=== PATIENT | male | born 1940 | race Caucasian/White ===

== ENCOUNTER 2016-10-12 12:08 | Day surgery (SDC) | payer MEDICARE, BC ==
--- NOTE | ~2016-10-12 | EGD ---
EGD REPORT [facility] [address] [address] NAME: NARESH SNELL : 40 [place]US [place] [facility] [place] [id number] AGE: 76 ADM/REG DATE : 10/12/16 MR#: [id number] REPORT SERV DATE: 10/12/16 DICTATED BY: LILLIANA NOWAK DATE: 10/12/16 REPORT STATUS : Draft TRANSCRIBED BY: [facility] DATE: 10/12/16 Endoscopy Center Patient Name: Naresh Snell Date of : 1940 Attending MD: LILLIANA NOWAK MD Procedure Date No Time: 10/12/2016 Procedure: Colonoscopy Indications: Follow-up for history of adenomatous polyps in the colon, Last colonoscopy: March 2006 Referring MD: KALLIE HERRON Medicines: Propofol per Anesthesia Complications: No immediate complications. Estimated blood loss: None. Procedure: Pre-Anesthesia Assessment: - After reviewing the risks and benefits, the patient was deemed in satisfactory condition to undergo the procedure. - Prior to the procedure, a History and Physical was performed, and patient medications and allergies were reviewed. The patient's tolerance of previous anesthesia was also reviewed. The risks and benefits of the procedure and the sedation options and risks were discussed with the patient. All questions were answered, and informed consent was obtained. Prior Anticoagulants: The patient has taken no previous anticoagulant or antiplatelet agents. ASA Grade Assessment: III - A patient with severe systemic disease. After reviewing the risks and benefits, the patient was deemed in satisfactory condition to undergo the procedure. After I obtained informed consent, the scope was passed under direct vision. Throughout the procedure, the patient's blood pressure, pulse, and oxygen saturations were monitored continuously. The CF [id number] was introduced through the anus and advanced to the cecum, identified by appendiceal orifice and ileocecal valve. The colonoscopy was performed with moderate difficulty due to significant looping and a tortuous colon. Successful completion of the procedure was aided by applying abdominal pressure. The ileocecal valve and appendiceal orifice were photographed. The patient tolerated the procedure well. The quality of the bowel preparation was adequate to identify polyps 6 mm and larger in size. The bowel preparation used was polyethylene glycol (PEG). Scope withdrawal time was greater than 6 minutes. EGD REPORT [address] [address] NAME: NARESH SNELL : [birth year] [place] [facility] [place] [id number] AGE: 76 ADM/REG DATE : 10/12/16 MR#: [id number] REPORT SERV DATE: 10/12/16 DICTATED BY: LILLIANA NOWAK DATE: 10/12/16 REPORT STATUS : Draft TRANSCRIBED BY: [employer] DATE: 10/12/16 Findings: The perianal and digital rectal examinations were normal. Pertinent negatives include normal sphincter tone. Bleeding internal hemorrhoids were found during retroflexion and were medium-sized and Grade I (internal hemorrhoids that do not prolapse). The exam was otherwise without abnormality. Impression: - Bleeding internal hemorrhoids. - The examination was otherwise normal. Recommendation: - Discharge patient to home (ambulatory). - Resume diet. - Resume regular home medicatons. - Keep F/U with PCP and Cardiology evaluation for hypothyroidism with under-replacement as well as new onset atrial fibrillation. - No further routine surveillance colonoscopy planned. - Patient has a contact number available for emergencies. The signs and symptoms of potential delayed complications were discussed with the patient. Return to normal activities tomorrow. Written discharge instructions were provided to the patient. Procedure Code(s): --- Professional --- 53212, Colonoscopy, flexible, proximal to splenic flexure; diagnostic, with or without collection of specimen(s) by brushing or washing, with or without colon decompression (separate procedure) Diagnosis Code(s): --- Professional --- K64.0, First degree hemorrhoids Z86.010, Personal history of colonic polyps CPT copyright 2013 [employer]. All rights reserved. The codes documented in this report are preliminary and upon shingle carrier review may be revised to meet current compliance requirements. Attending Participation: I personally performed the entire procedure. LILLIANA NOWAK MD 10/12/2016 2:23 PM This report has been signed electronically. Number of Addenda: 0 EGD REPORT [facility] [address] [address] NAME: ALISNARESH SANDRA : 40 [place]US [place] [facility] [place] [id number] AGE: 76 ADM/REG DATE : 10/12/16 MR#: [id number] REPORT SERV DATE: 10/12/16 DICTATED BY: LILLIANA NOWAK DATE: 10/12/16 REPORT STATUS : Draft TRANSCRIBED BY: [employer] DATE: 10/12/16 Note Initiated On: 10/12/2016 1:05 PM Scope Withdrawal Time 0 hours 6 minutes 41 seconds [address] [address]
[~2016-10-12 12:08] MED LIST: AVODART PO; B150 PO; CELEXA20 PO; DIOVAN HCT160 MG/25 PO; DIOVAN320 MG PO; HALF81 PO; HYZAAR 100/25 T1 TAB PO; MULTIPLE VIT PO; NORCO1 TA2 PO; PERCOCET1 TA4 PO; SEROQUEL50 MG PO; SYN125 PO; SYNTHROID175 MCG PO; VITAMIN E PO; VITD PO; ZOCOR40 PO; [UNRECOGNIZED DRUG - OTHER] PO
[2016-10-12 13:02] LABS: BUN (BLOOD UREA NITROGEN) 8 MG/DL (6-23); CALCIUM, SERUM 8.9 MG/DL (8.5-10.4); CHLORIDE, SERUM 102 MMOL/L (96-112); CO2 (CARBON DIOXIDE) 26 MMOL/L (24-34); CREATININE 0.95 MG/DL (0.70-1.30); GFR AFRICAN AMERICAN 90 ML/MIN (>=60); GFR NON AFRICAN AMERICAN 77 ML/MIN (>=60); GLUCOSE, SERUM 106 MG/DL (60-99); POTASSIUM, SERUM 3.8 MMOL/L (3.5-5.3); SODIUM, SERUM 138 MMOL/L (135-148)
[2016-10-21] MEDS ORDERED: NORV10 PO (10:50)
[2016-10-21] MEDS ORDERED: HALF81 PO (10:50)
[2016-10-21] MEDS ORDERED: CENTRUM PO (10:51)
[2016-10-21] MEDS ORDERED: ELIQUIS 5 MG TAB5 MG PO (10:51)
[2016-10-21] MEDS ORDERED: AVODART PO (10:51)
[2016-10-21] MEDS ORDERED: COREG3 PO (10:51)
[2016-10-21] MEDS ORDERED: OS500+D PO (10:51)
[2016-10-21] MEDS ORDERED: FERATE240 M1 PO (10:52)
[2016-10-21] MEDS ORDERED: MELATONIN10 M2 PO (10:53)
[2016-10-21] MEDS ORDERED: VITAMIN D31000 UNIT PO (10:54)
[2016-10-21] MEDS ORDERED: VITAMIN B-122500 MCG SL (10:54)
[2016-10-21] MEDS ORDERED: DIOV160 PO (10:54)
[2016-10-21] MEDS ORDERED: VITE PO (10:54)
[2016-12-12] MEDS ORDERED: SPIRO50 PO (15:47)
[2016-12-12] MEDS ORDERED: DIOV160 PO (15:47)
[2016-12-12] MEDS ORDERED: LEVOTHYROXIN125 MCG PO (15:48)
[2016-12-12] MEDS ORDERED: COREG6 PO (15:48)
[2016-12-12] MEDS ORDERED: ELIQUIS 5 MG TAB5 MG PO (15:48)
[2016-12-12] MEDS ORDERED: AVODART PO (15:49)
[2016-12-12] MEDS ORDERED: CALTRA600D PO (15:49)
[2016-12-12] MEDS ORDERED: FISH OIL300 MG PO (15:50)
[2016-12-12] MEDS ORDERED: VITE1000 PO (15:50)
[2016-12-12] MEDS ORDERED: VITAMIN D31000 UNIT PO (15:50)
[2016-12-12] MEDS ORDERED: MELATONIN10 M2 PO (15:56)
[2016-12-13] MEDS ORDERED: SPIRO25 PO (10:04)
[2016-12-13] MEDS ORDERED: COREG12 PO (15:21)
[2016-12-13] MEDS ORDERED: LIPITOR40 PO (15:21)
[2016-12-13] MEDS ORDERED: PACERONE200 MG PO (15:22)
[2016-12-13] MEDS ORDERED: CORDARONE PO (15:22)
== END 2016-10-12 23:59 | disposition home or self-care (01) ==
LOC: REF 12:08
PROVIDERS: Internal Medicine Gastroenterology
PROC: 0DJD8ZZ Inspection of Lower Intestinal Tract, Via Natural or Artificial Opening Endoscopic (ICD-10-PCS; principal; 2016-10-12 13:56)
DX: Z12.11 Encounter for screening for malignant neoplasm of colon (principal); K64.0 First degree hemorrhoids; E78.00 Pure hypercholesterolemia, unspecified; E03.9 Hypothyroidism, unspecified; I10 Essential (primary) hypertension; Z86.010 Personal history of colon polyps; Z86.73 Personal history of transient ischemic attack (TIA), and cerebral infarction without residual deficits
CPT/HCPCS: 80048; 83735; 84443; 93005; A9270-GY